=== PATIENT | male | born 1945 | race Hispanic/Latino ===

== ENCOUNTER 2016-06-13 06:10 | Inpatient (IN) | payer MEDICARE ==
[2016-06-07 13:37] LABS: Basophils % (Auto) 0.6 % (0.0-1.8); Eosinophils % (Auto) 2.6 % (0.0-4.3); Hematocrit 49.5 % (35.5-45.6); Hemoglobin 16.2 gm/dl (11.8-15.2); Mean Corpuscular HGB Conc 33 % (32-34); Mean Corpuscular Hemoglobin 30 pg (28-32); Mean Corpuscular Volume 93 fl (84-94); Platelet Count 165 K/mm3 (140-440); Red Blood Count 5.34 M/mm3 (3.65-5.03); Red Cell Distribution Width 14.6 % (13.2-15.2); White Blood Count 8.1 K/mm3 (4.5-11.0)
[2016-06-07 13:48] LABS: INR 1.27 (0.87-1.13); Partial Thromboplastin Time 33.6 Sec. (24.2-36.6)
--- NOTE | 2016-06-07 13:59 | Anesthesia Consultation ---
Anesthesia Consult and Med Hx Date of service: 06/07/16 - Airway Anesthetic Teeth Evaluation: Dentures, Partials ROM Head & Neck: Inadequate Mental/Hyoid Distance: Inadequate Mallampati Class: Class II Intubation Access Assessment: Probably Good - Pulmonary Exam CTA: Yes (blbs clear/distant) - Cardiac Exam Cardiac Exam: RRR - Pre-Operative Health Status ASA Pre-Surgery Classification: ASA3 Proposed Anesthetic Plan: General - Pulmonary Hx Smoking: Yes (STOPPED 1989-02 PPD X 30YRS) COPD: Yes (?) Hx Sleep Apnea: No (MOHAN PRE SCREEN HIGH RISK) - Cardiovascular System Hx Hypertension: Yes (1989) Hx Coronary Artery Disease: Yes Hx Heart Attack/AMI: Yes (1989- [place] WITH MEDS) Hx Cardia Arrhythmia: Yes (intermittant afib on anticoagulation) Hx Pacemaker: Yes Hx Internal Defibrillator: Yes (AICD last EF 40% /did get cardiac clearance) Hx Valvular Heart Disease: Yes (MITRAL VALVE INSUFFICIENCY) Hx Peripheral Vascular Disease: Yes (L CEA) - Endocrine Hx Non-Insulin Dependent Diabetes: Yes - Additional Comments Anesthesia Medical History Comments: gout /prostate cancer/RUBY/
[2016-06-07 14:02] LABS: Albumin 4.2 g/dL (3.9-5); Albumin/Globulin Ratio 1.2 %; BUN/Creatinine Ratio 33.07; Bilirubin,Total 0.6 mg/dL (0.1-1.2); Chloride 97.7 mmol/L (98-107); Potassium 4.1 mmol/L (3.6-5.0); Total Protein 7.6 g/dL (6.3-8.2)
--- NOTE | 2016-06-09 13:19 | Admit Criteria Form ---
Admission Criteria Documentation: AMBULATORY SURGERY EXCEPTION CRITERIA Ambulatory Surgery Exception Criteria ( Place 'X' for any and all applicable criteria): Surgery or procedure performed on ambulatory basis may require inpatient stay for[A] ANY ONE of the following(1)(2)(3)(4)(5)(6)(7)(8)(9): [X] I. A preoperative situation, condition, or finding that warrants inpatient stay as indicated by ANY ONE of the following: [] a) Inpatient care needed because of severity of a disease or condition rather than the surgery (eg, severe cardiac or respiratory disease, severe infection) (15) (16 ) (17) (18) [] b) Emergent procedure (eg, angioplasty for acute ischemia)(19) [] c) Complex surgical approach or situation as indicated by ANY ONE of the following(3): [] i) Open approach needed instead of usual endoscopic, transcatheter, or other less invasive procedure [] ii) Difficult approach because of previous operation [] iii) Airway monitoring required after open neck procedures(20)(21) [] iv) Large mass requiring unusually extensive dissection [] v) Additional complicating feature requiring inpatient care (eg, drain management)(22(23): [X] d) Major surgery in a pt with high anesthetic risk as indicated by ANY ONE of the following (2)(3)(5)(7)(8): [X] i) ASA risk class III or higher (severe systemic disease impairing function) [D] [] ii) Advanced age (eg, older than 85 years)(14)(24) [] iii) Symptomatic heart failure(25) [] iv) Symptomatic asthma or COPD(8)(21) [] v) Morbid obesity with hemodynamic or respiratory problems(20)( 21)(26)(27) [] vi) Obstructive sleep apnea(20)(21) [] vii) Former premature infants who are younger than 60 weeks [] viii) High risk for severe postoperative abnormalities (eg, severe postoperative hypocalcemia after parathyroidectomy for severe hyperparathyroidism)(27)( 28) [] ix) Unstable angina(25) [] e) Drug-related risk requiring inpatient stay as indicated by ANY ONE of the following(5)(10)(14)(32)(33) [] i) Procedure requires discontinuing drugs or other therapy (eg , antiarrhythmic medication, antiseizure medication), which necessitates inpatient observation or treatment.(18)(31) [] ii) Major surgery and high risk drug use as indicated by ANY ONE of the following: [] 1) Active abuse of cocaine or similar drug [] 2) Monoamine oxidase inhibitor use [] 3) Other drug identified as posing risk [] f) Inadequate outpatient care situation as indicated by ANY ONE of the following(5)(10)(14)(32)(33) [] i) Patient lives remote from medical facility and procedure has urgent complication potential, and temporary nearby residence cannot be arranged [] ii) Patient will have postprocedure incapacitation and inadequate assistance at home, or alternative level of care cannot be arranged. [] iii) Patient will have long general anesthesia or procedure side effect resolution time, and competent person to stay with patient on first postoperative night at home or alternative level of care cannot be arranged. []iv) Other inadequate outpatient situation that cannot be handled by other means [] II. A perioperative event, condition, or finding that warrants inpatient stay as indicated by ANY ONE of the following (1)(2)(3): [] a) Inadequate physiologic recovery: cardiovascular, respiratory, or hemodynamic status not normal or near preoperative baseline(18) [] b) Hemodynamic instability [] c) Patient not alert with near normal or baseline mental status [] d) Temperature not normal or as expected and not appropriate for outpatient treatment of condition [] e) Ambulatory or appropriate activity level status not yet achieved post procedure [E](34)(35)(36) [] f) Operative site not appropriate (eg, unexpected or excessive drainage or bleeding) [] g) Postoperative effects not resolved or adequately managed (eg, significant pain or vomiting not appropriate for outpatient or next level of care)(10)(12) [] h) Complicating features requiring inpatient care as indicated by ANY ONE of the following(37): [] i) Severe complications of procedure (eg, bowel injury, airway compromise, vascular injury,severe hemorrhage) [] ii) Extensive (eg, dissection far beyond usual scope of procedure ) or prolonged (eg, 120 minutes beyond usual) surgery needed requiring inpatient postoperative care [] iii) Conversion to an open or complex procedure that requires inpatient care (eg, open vs laparoscopic cholecystectomy, abdominal vs vaginal hysterectomy)(38) [] iv) Comorbid condition or test result identified during or post procedure that requires inpatient care (7) [] v) Malignant hyperthermia(30) [] vi) Other complicating feature requiring inpatient care(22)(23) Inpatient stay may be needed until ALL of the following are present (1)(2)(3)(4) (5)(6)(10)(14)(33)(40): []a) Physiologic recovery: cardiovascular, respiratory, and hemodynamic status normal or near preoperative baseline []b) Hemodynamic stability []c) Patient alert, with near normal or baseline mental status []d) Temperature appropriate: patient afebrile or temperature appropriate for outpt treatment of condition []e) Activity level appropriate: ambulatory or appropriate activity level post procedure []f) Operative site appropriate as indicated by ALL of the following: []i) Site dry or with expected drainage []ii) Any blood noted is as expected for procedure. []g) Postoperative effects resolved or managed as indicated by ALL of the following: []i) Pain management appropriate for outpatient (or next level of) care(10) []ii) Minimal nausea and vomiting: if present, successfully treated with oral medication(12) []iii) Headache, dizziness, or drowsiness (if present) are mild. []h) Voiding status acceptable as indicated by ANY ONE of the following: []i) Voiding spontaneously []ii) No voiding but instructions given for follow-up in 6 to 8 hours []iii) Urinary catheter in place, and instructions given for follow-up []i) Complicating features requiring inpatient care manageable at a lower level of care(37) []j) Comorbid conditions manageable at a lower level of care(37) The original [employer] content created by [employer] has been revised. The portions of the content which have been revised are identified through the use of italic text or in bold, and [employer] has neither reviewed nor approved the modified material. All other unmodified content is copyright [employer]. Please see references footnoted in the original [employer] edition 2016
[~2016-06-13 06:10] MED LIST: ANCEF/STERILE WATER 2 GM/20 ML IV NR; DILAUDID IV PRN; NACL 0.9% 1000 ML 1,000 ML IV SCH; PEPCID IV NR; PEPCID PO NR; SUBLIMAZE IV PRN; VERSED IV NR
[2016-06-13] MEDS ORDERED: NACL BACTERIOSTATIC INFILTRATI ONE (06:32)
[2016-06-13] MEDS: NACL 0.9% 1000 ML 1,000 ML IV SCH ×2 (07:11→18:12)
[2016-06-13 07:17] LABS: INR 1.05 (0.87-1.13); Partial Thromboplastin Time 31.7 Sec. (24.2-36.6)
[2016-06-13] MEDS ORDERED: XYLOCAINE MPF 2% ONE (07:23)
[2016-06-13] MEDS ORDERED: DILAUDID ONE (07:24)
[2016-06-13] MEDS ORDERED: DIPRIVAN 10 MG/ML IV ONE (07:24)
[2016-06-13] MEDS ORDERED: ZEMURON IV ONE (07:24)
[2016-06-13] MEDS ORDERED: CALCIUM CHLORIDE IV ONE ×2 (07:27→10:22)
[2016-06-13] MEDS ORDERED: ACD-A 500 ML IV ONE (07:27)
--- NOTE | 2016-06-13 07:27 | Anesthesia Day of Surgery ---
Anesthesia Day of Surgery - Day of Surgery Patient Examined: Yes Patient H&P Reviewed: Yes Patient is NPO: Yes Beta Blockers: Yes Cardiac Clearance: Yes
[2016-06-13] MEDS ORDERED: THROMBIN (BOVINE) TP ONE ×2 (07:28→10:22)
[2016-06-13] MEDS ORDERED: SUBLIMAZE ONE (07:32)
[2016-06-13] MEDS ORDERED: MARCAINE-EPI 0.5%-1:200,000 INFILTRATI ONE (07:32)
[2016-06-13] MEDS ORDERED: MARCAINE-EPI/PF 0.5%-1:200,000 INFILTRATI ONE (07:32)
[2016-06-13] MEDS ORDERED: DECADRON ONE (07:33)
[2016-06-13] MEDS ORDERED: CLONIDINE 1,000 MCG/10 ML VIAL EP ONE (07:33)
[2016-06-13] MEDS ORDERED: XYLOCAINE 1% 20 mL ONE (07:36)
[2016-06-13] MEDS ORDERED: ePHEDrine SULFATE ONE ×2 (08:34→10:24)
[2016-06-13] MEDS ORDERED: ZOFRAN IV PRN ×2 (08:39→11:00)
[2016-06-13] MEDS ORDERED: DILAUDID IV PRN (08:39)
[2016-06-13] MEDS ORDERED: NACL 0.9% 1000 ML 1,000 ML ONE ×2 (09:46→12:05)
[2016-06-13] MEDS ORDERED: NEOSTIGMINE ONE (10:14)
[2016-06-13] MEDS ORDERED: ZOFRAN ONE (10:14)
[2016-06-13] MEDS ORDERED: ROBINUL ONE (10:14)
[2016-06-13] MEDS ORDERED: NACL 0.9% IR ONE (10:21)
[2016-06-13] MEDS ORDERED: WATER FOR IRRIG STERILE IR ONE (10:21)
[2016-06-13] MEDS ORDERED: ACD-A IV ONE (10:21)
[2016-06-13] MEDS ORDERED: D50W (25GM) IV PRN (10:50)
[2016-06-13] MEDS ORDERED: MORPHINE IV PRN (10:50)
[2016-06-13] MEDS ORDERED: NARCAN 0.4 MG/1 ML IV PRN (10:50)
[2016-06-13] MEDS ORDERED: NORCO 5/325 PO PRN (10:50)
[2016-06-13] MEDS ORDERED: TYLENOL PO PRN (10:50)
--- NOTE | 2016-06-13 10:50 | Short Stay Summary ---
Short Stay Documentation Date of service: 06/13/16 - History H&P: obtained from office - Allergies and Medications Current Medications: Allergies dabigatran etexilate mesylate [From Pradaxa] Allergy (Verified 06/06/16 10:48) Shortness of Breath atorvastatin calcium [From Lipitor] Adverse Reaction (Verified 06/06/16 10:49) MUSCLE WEAKNESS Home Medications Medication Instructions Recorded Confirmed Last Taken Type Allopurinol [Zyloprim] 300 mg PO QDAY 06/06/16 06/06/16 Unknown History Apixaban [Eliquis] 5 mg PO BID 06/06/16 06/06/16 Unknown History Bumetanide [Bumex] 1 mg PO DAILY 06/06/16 06/06/16 Unknown History Carvedilol [Coreg] 25 mg PO BID 06/06/16 06/06/16 Unknown History Cholecalciferol (Vitamin D3) 5,000 unit PO DAILY 06/06/16 06/06/16 Unknown History [Vitamin D3] Fenofibrate [Tricor] 145 mg PO QDAY 06/06/16 06/06/16 Unknown History Glimepiride [Amaryl] 4 mg PO BID 06/06/16 06/06/16 Unknown History Liraglutide [Victoza 2-Ibn] 0.6 mg SUB-Q DAILY 06/06/16 06/06/16 Unknown History Nitroglycerin [Nitrostat] 0.4 mg SL Q5M PRN 06/06/16 06/06/16 Unknown History Olmesartan/Amlodipin/Hcthiazid 1 tab PO DAILY 06/06/16 06/06/16 Unknown History [Tribenzor 40-5-25 mg] [place]-3 Acid Ethyl Esters [Lovaza] 2 gm PO BID 06/06/16 06/06/16 Unknown History Rosuvastatin Calcium [Crestor] 40 mg PO QHS 06/06/16 06/06/16 Unknown History Sitagliptin Phosphate [Januvia] 100 mg PO DAILY 06/06/16 06/06/16 Unknown History Tamsulosin [Flomax] 0.4 mg PO QDAY 06/06/16 06/06/16 Unknown History metFORMIN [Glucophage] 500 mg PO BID 06/06/16 06/06/16 Unknown History Active Medications Cefazolin Sodium (Ancef/Sterile Water 2 Gm/20 Ml) 2 gm IV PREOP NR Stop: 06/13/16 23:59 Famotidine (Pepcid) 20 mg PO PREOP NR Stop: 06/13/16 23:44 Last Admin: 06/13/16 07:09 Dose: 20 mg Hydromorphone HCl (Dilaudid) 0.5 mg IV Q10MIN PRN PRN Reason: Pain , Severe (7-10) Stop: 06/13/16 16:00 Sodium Chloride (Nacl 0.9% 1000 Ml) 1,000 mls @ 100 mls/hr IV DIRECT SIGRID Last Admin: 06/13/16 07:11 Dose: 100 mls/hr Midazolam HCl (Versed) 2 mg IV PREOP NR Stop: 06/13/16 23:59 Last Admin: 06/13/16 07:50 Dose: 2 mg Ondansetron HCl (Zofran) 4 mg IV ONCE PRN PRN Reason: Nausea And Vomiting Stop: 06/13/16 16:00 - Brief post op/procedure progress note Date of procedure: 06/13/16 Pre-op diagnosis: prostate cancer Procedure: robotic prostatectomy Anesthesia: GETA Surgeon: ROBBI BASS Software Program Manager: MICHELLE ALBRIGHT Estimated blood loss: other (450cc) Pathology: list (prostate) Specimen disposition: to lab Condition: stable - Hospital course Hospital course: rudy zamorano ambien & post op info on chart mild increase in cr to 2.1 Hb 11 Glucose 200s---trending down will send home restart blood thinner the day pavon removed recheck cbc & chem 7 on post op - Disposition Condition at discharge: Stable Short Stay Discharge Plan Follow up with: MICHELLE ERNST MD [Primary Care Provider] - 7 Days
[2016-06-13] MEDS ORDERED: NACL 0.9% 1000 ML 1,000 ML IV SCH (11:00)
[2016-06-13] MEDS ORDERED: NITROSTAT SL PRN (11:06)
[2016-06-13 12:23] LABS: Hemoglobin 13.9 gm/dl (11.8-15.2); Mean Corpuscular HGB Conc 33 % (32-34); Mean Corpuscular Hemoglobin 30 pg (28-32); Mean Corpuscular Volume 92 fl (84-94); Platelet Count 136 K/mm3 (140-440); Red Blood Count 4.57 M/mm3 (3.65-5.03); Red Cell Distribution Width 14.3 % (13.2-15.2); White Blood Count 10.9 K/mm3 (4.5-11.0)
--- NOTE | 2016-06-13 12:25 | Post Anesthesia Evaluation ---
- Post Anesthesia Evaluation Patient Participated: Yes Airway Patent: Yes Stable Respiratory Function: Yes Nausea/Vomiting: No Temp > 96.8F: Yes Pain Manageable: Yes Adequeate Hydration: Yes Anesthesia Complications: No Block Receding Appropriately: Not Applicable Patient on Ventilator: No
[2016-06-13 12:38] LABS: BUN/Creatinine Ratio 22.66; Calcium 8.3 mg/dL (8.4-10.2); Chloride 101.3 mmol/L (98-107); Potassium 5.2 mmol/L (3.6-5.0)
[2016-06-13 12:57] LABS: Basophils % (Manual) 0 % (0.0-1.8); Blastocytes % (Manual) 0 %; Eosinophils % (Manual) 0 % (0.0-4.3)
[2016-06-13 12:58] LABS: Diff Status Complete; Platelet Estimate Cons; RBC Morphology Normal
[2016-06-13] MEDS: AMARYL PO SCH ×2 (14:29→17:52)
--- NOTE | 2016-06-13 14:41 | Operative Report ---
PREOPERATIVE DIAGNOSIS: Prostate cancer. POSTOPERATIVE DIAGNOSIS: Prostate cancer. SECONDARY DIAGNOSES: Diabetes, atrial fibrillation, hyperlipidemia, increased body mass index. PROCEDURE: Robotic-assisted laparoscopic prostatectomy. SURGEON: Laron Jennings MD ENTERPRISE PROJECT MANAGER: Oj Dao. ANESTHESIA: General. ANESTHESIOLOGIST: Siomara Smith MD ESTIMATED BLOOD LOSS: 450 mL. FLUIDS: 250 mL of Cell Saver. DRAINS: Junito-Powell drain x 1. COMPLICATIONS: No complications. INDICATIONS: This 71-year-old gentleman initially seen by Dr. Holly in the office for elevated PSA of 6. He underwent transrectal ultrasound and biopsies of prostate in March, was found to have a Monica 4+3 adenocarcinoma of the prostate in the left side 3 of 12 cores. Options were discussed. The patient was actually seen by Radiation Therapy due to his persistent voiding symptoms, I did not feel that he would benefit from external beam radiation and only recommended seeds, which the patient was uncomfortable with that treatment plan. We discussed robotic prostatectomy. Options were discussed, video given, he agreed to proceed procedure. He received clearance from Dr. Givens's group. DESCRIPTION OF PROCEDURE: The patient was taken to the operative suite, placed in a supine position. After adequate general anesthesia, he was then placed in a modified dorsal lithotomy position. Andujar catheter was placed on the operative field. Towel clips were placed. Supraumbilical incision was made with the Bovie. Anterior traction was performed. Veress needle was inserted. Drop test was negative. Opening pressure was 4 cm of water. Oj Dao, surgical scheduler was present throughout the procedure, and aided with the bedside dissection. Insufflation to 15 mL of water was performed. A 0-degree lens was used under direct vision and a supraumbilical port was placed. No intra-abdominal injury. No signs of metastasis could be appreciated. The patient was then placed in exaggerated Trendelenburg position. A 15 cm cephalad to pubic symphysis was marked in 10 cm lateral, the 8 mm ports were then placed in that area as well as on the right side, a 10 mm helper port and the 5 mm helper port. Robotic arms were placed, the robotic cart was docked between the legs. The patient was noted to have some adhesions of the sigmoid colon in the right side. Sharp dissection was used to take them down. The #3 arm was used to apply anterior traction to the posterior aspect of the prostate and bladder. Second arch was scored. Seminal vesicles and vas deferens could be appreciated. They were dissected out and the dissection was taken to the apex of the prostate. Vas deferens was transected. Seminal vesicles were dissected out, and then these copious irrigation was performed. Adequate hemostasis achieved. The attention was then taken to the anterior abdominal wall lateral to the lateral umbilical ligament was scored bilaterally. Dissection was taken down to expose the pubic rami bilaterally. The dorsal vein complex was controlled with the 45 mm vascular stapler. The endopelvic fascia was opened bilaterally. Attention was taken to the bladder neck which was transected anteriorly, exposing the Andujar catheter. It was deflated. Anterior traction was used to allow the posterior dissection of the bladder neck. Seminal vesicles and vas deferens could be appreciated. There were pulled anteriorly exposing the lateral pedicles were controlled with a 45 mm stapler. The apex of the prostate was dissected out. The urethra was transected with the Bovie and the prostate was placed in the EndoCatch bag and retracted laterally. Copious irrigation was performed. Adequate hemostasis was achieved. At bladder neck, a 12 o'clock helper stitch using 2-0 Vicryl was placed. Bladder neck reconstruction at the 5 o'clock and 7 o'clock positions were performed without difficulty to accommodate an 18 Romanian Andujar catheter. Double armed V-Loc stitch was placed at the 6 o'clock position of the bladder neck, corresponding aspect of the urethra in a running stitch was placed bilaterally. A new 18-Romanian Andujar catheter was placed. A 15 mL of sterile water in the balloon. The anastomotic stitch was cinched down. Irrigation, no clots, no leak. Junito-Powell drain was placed in the abdomen, brought out through the left side port. No intra-abdominal injuries could be appreciated. Robotic ports were removed, cart undocked. Next, the supraumbilical incision was extended to allow removal of the prostate en bloc. Supraumbilical incision was then closed with #1 Vicryl in a [id number] fashion. 2-0 silk was used to secure the drain of the skin. 3-0 Monocryl was used for the skin as well as it was injected with Marcaine. Side port on the Andujar catheter was tied over, #1 silk was used to tie, so it could not be removed. The patient tolerated the procedure well, extubated and taken to recovery room. He will be observed overnight, go home on Cipro and Joy. [facility]# [id number] RADHA/KORIN GARRIDO
[2016-06-13] MEDS: ANCEF/NS 1 GM/50 ML 1 GM/50 ML BAG IV SCH (17:52)
[2016-06-13] MEDS ORDERED: NON-FORMULARY (Rosuvastatin Calcium [Crestor] 40 MG) PO SCH (22:00)
[2016-06-13] MEDS ORDERED: AMBIEN PO PRN (22:00)
[2016-06-13] MEDS ORDERED: GLUCOPHAGE PO SCH (22:00)
[2016-06-14] MEDS: COREG PO SCH ×2 (00:31→12:15)
[2016-06-14] MEDS: ANCEF/NS 1 GM/50 ML 1 GM/50 ML BAG IV SCH (01:43)
[2016-06-14 05:02] LABS: Basophils % (Auto) 0.2 % (0.0-1.8); Hematocrit 34.8 % (35.5-45.6); Hemoglobin 11.7 gm/dl (11.8-15.2); Mean Corpuscular HGB Conc 34 % (32-34); Mean Corpuscular Hemoglobin 31 pg (28-32); Mean Corpuscular Volume 92 fl (84-94); Platelet Count 141 K/mm3 (140-440); Red Cell Distribution Width 14.8 % (13.2-15.2); White Blood Count 11.6 K/mm3 (4.5-11.0)
[2016-06-14 05:09] LABS: BUN/Creatinine Ratio 22.85; Calcium 7.9 mg/dL (8.4-10.2); Chloride 101.1 mmol/L (98-107); Potassium 5.3 mmol/L (3.6-5.0)
[2016-06-14] MEDS ORDERED: GLUCOPHAGE PO SCH (08:00)
--- NOTE | 2016-06-14 08:30 | Consultation ---
History of Present Illness - Reason for Consult Consult date: 06/13/16 Medical management Requesting physician: ROBBI BASS Past History Past Medical History: CAD, hypertension, other (Gout) Medications and Allergies Allergies Allergy/AdvReac Type Severity Reaction Status Date / Time dabigatran etexilate mesylate Allergy Shortness Verified 06/06/16 10:48 [From Pradaxa] of Breath atorvastatin calcium AdvReac MUSCLE Verified 06/06/16 10:49 [From Lipitor] WEAKNESS Home Medications Medication Instructions Recorded Confirmed Last Taken Type Allopurinol [Zyloprim] 300 mg PO QDAY 06/06/16 06/13/16 06/12/16 History Apixaban [Eliquis] 5 mg PO BID 06/06/16 06/13/16 06/09/16 History Bumetanide [Bumex] 1 mg PO 5XW 06/06/16 06/13/16 06/10/16 History Carvedilol [Coreg] 25 mg PO BID 06/06/16 06/13/16 06/13/16 05:00 History Cholecalciferol (Vitamin D3) 5,000 unit PO DAILY 06/06/16 06/13/16 06/12/16 History [Vitamin D3] Fenofibrate [Tricor] 145 mg PO QDAY 06/06/16 06/13/16 06/12/16 History Glimepiride [Amaryl] 4 mg PO BID 06/06/16 06/13/16 06/12/16 History Liraglutide [Victoza 2-Bin] 0.6 mg SUB-Q DAILY 06/06/16 06/13/16 06/12/16 History Nitroglycerin [Nitrostat] 0.4 mg SL Q5M PRN 06/06/16 06/06/16 Unknown History Olmesartan/Amlodipin/Hcthiazid 1 tab PO DAILY 06/06/16 06/13/16 06/13/16 05:00 History [Tribenzor 40-5-25 mg] [place]-3 Acid Ethyl Esters [Lovaza] 2 gm PO BID 06/06/16 06/13/16 06/12/16 History Rosuvastatin Calcium [Crestor] 40 mg PO QHS 06/06/16 06/13/16 06/12/16 History Sitagliptin Phosphate [Januvia] 100 mg PO DAILY 06/06/16 06/13/16 06/12/16 History Tamsulosin [Flomax] 0.4 mg PO QDAY 06/06/16 06/13/16 06/12/16 History metFORMIN [Glucophage] 500 mg PO BID 06/06/16 06/13/16 06/12/16 History Active Meds: Active Medications Acetaminophen (Tylenol) 650 mg PO Q4H PRN PRN Reason: Pain, Mild (1-3)/Fever > 100.5 Acetaminophen/Hydrocodone Bitart ([place] 5/325) 2 each PO Q4H PRN PRN Reason: Pain, Moderate (4-6) Last Admin: 06/13/16 18:10 Dose: 2 each Allopurinol (Zyloprim) 300 mg PO QDAY [facility] Amlodipine Besylate (Norvasc) 5 mg PO QDAY [facility] Bumetanide (Bumex) 1 mg PO DAILY [facility] Carvedilol (Coreg) 25 mg PO BID [facility] Last Admin: 06/14/16 00:31 Dose: Not Given Dextrose (D50w (25gm)) 50 ml IV PRN PRN PRN Reason: Hypoglycemia Fenofibrate (Tricor) 145 mg PO QDAY [facility] Glimepiride (Amaryl) 4 mg PO BIDDIAB [facility] Last Admin: 06/13/16 17:52 Dose: 4 mg Hydrochlorothiazide (Hctz) 25 mg PO QDAY [facility] Sodium Chloride (Nacl 0.9% 1000 Ml) 1,000 mls @ 100 mls/hr IV DIRECT [facility] Last Admin: 06/14/16 03:58 Dose: 100 mls/hr Insulin Human Regular (Novolin R) 0 units SUB-Q ACHS SIGRID PRN Reason: Protocol Last Admin: 06/14/16 00:34 Dose: 3 units Linagliptin (Tradjenta) 5 mg PO QDAY [facility] Losartan Potassium (Cozaar) 50 mg PO QDAY [facility] Metformin HCl (Glucophage) 500 mg PO BIDDIAB [facility] Miscellaneous Medication (Rosuvastatin Calcium [Crestor]) 40 mg PO QHS [facility] Morphine Sulfate (Morphine) 4 mg IV Q4H PRN PRN Reason: Pain , Severe (7-10) Naloxone HCl (Narcan 0.4 Mg/1 Ml) 0.1 mg IV Q2MIN PRN PRN Reason: Res Rate </= 8 or 02 SAT < 92% Nitroglycerin (Nitrostat) 0.4 mg SL Q5M PRN PRN Reason: Chest Pain Ondansetron HCl (Zofran) 4 mg IV Q8H PRN PRN Reason: Nausea And Vomiting Zolpidem Tartrate (Ambien) 5 mg PO QHS PRN PRN Reason: Sleep Last Admin: 06/14/16 00:35 Dose: 5 mg Review of Systems All systems: negative Exam - Constitutional Vitals: Temp Pulse Resp BP Pulse Ox 98.3 F 82 18 114/65 95 06/14/16 07:35 06/14/16 07:35 06/14/16 07:35 06/14/16 07:35 06/14/16 07:35 General appearance: Present: no acute distress, well-nourished - EENT Eyes: Present: PERRL ENT: hearing intact, clear oral mucosa - Neck Neck: Present: supple, normal ROM - Respiratory Respiratory effort: normal Respiratory: bilateral: CTA - Cardiovascular Heart Sounds: Present: S1 & S2. Absent: rub, click - Extremities Extremities: pulses symmetrical, No edema Peripheral Pulses: within normal limits - Abdominal General gastrointestinal: Present: soft, non-tender, non-distended, normal bowel sounds Male genitourinary: Present: normal - Integumentary Integumentary: Present: clear, warm, dry - Musculoskeletal Musculoskeletal: gait normal, strength equal bilaterally - Psychiatric Psychiatric: appropriate mood/affect, intact judgment & insight - Neurologic Neurologic: CNII-XII intact, moves all extremities Results - Labs CBC & Chem 7: 06/14/16 04:14 06/14/16 04:14 Labs: Abnormal lab results 06/13/16 06/13/16 06/13/16 Range/Units 11:23 12:13 12:13 WBC (4.5-11.0) K/mm3 Hgb (11.8-15.2) gm/dl Hct (35.5-45.6) % Plt Count 136 L (140-440) K/mm3 Lymph % (Auto) (13.4-35.0) % Lymph # (1.2-5.4) K/mm3 Seg Neutrophils % (40.0-70.0) % Seg Neuts % (Manual) 89.0 H (40.0-70.0) % Lymphocytes % (Manual) 8.0 L (13.4-35.0) % Seg Neutrophils # (1.8-7.7) K/mm3 Seg Neutrophils # Man 9.7 H (1.8-7.7) K/mm3 Lymphocytes # (Manual) 0.9 L (1.2-5.4) K/mm3 Sodium 135 L (137-145) mmol/L Potassium 5.2 H (3.6-5.0) mmol/L Carbon Dioxide 21 L (22-30) mmol/L BUN 34 H (9-20) mg/dL Creatinine (0.8-1.5) mg/dL Glucose 224 H (75-100) mg/dL POC Glucose 202 H (70-105) Calcium 8.3 L (8.4-10.2) mg/dL 06/13/16 06/13/16 06/13/16 Range/Units 12:13 13:05 16:30 WBC (4.5-11.0) K/mm3 Hgb (11.8-15.2) gm/dl Hct (35.5-45.6) % Plt Count (140-440) K/mm3 Lymph % (Auto) (13.4-35.0) % Lymph # (1.2-5.4) K/mm3 Seg Neutrophils % (40.0-70.0) % Seg Neuts % (Manual) (40.0-70.0) % Lymphocytes % (Manual) (13.4-35.0) % Seg Neutrophils # (1.8-7.7) K/mm3 Seg Neutrophils # Man (1.8-7.7) K/mm3 Lymphocytes # (Manual) (1.2-5.4) K/mm3 Sodium (137-145) mmol/L Potassium (3.6-5.0) mmol/L Carbon Dioxide (22-30) mmol/L BUN (9-20) mg/dL Creatinine (0.8-1.5) mg/dL Glucose (75-100) mg/dL POC Glucose 226 H 221 H 493 H (70-105) Calcium (8.4-10.2) mg/dL 06/13/16 06/14/16 06/14/16 Range/Units 21:17 04:14 04:14 WBC 11.6 H (4.5-11.0) K/mm3 Hgb 11.7 L (11.8-15.2) gm/dl Hct 34.8 L D (35.5-45.6) % Plt Count (140-440) K/mm3 Lymph % (Auto) 5.1 L (13.4-35.0) % Lymph # 0.6 L (1.2-5.4) K/mm3 Seg Neutrophils % 87.8 H (40.0-70.0) % Seg Neuts % (Manual) (40.0-70.0) % Lymphocytes % (Manual) (13.4-35.0) % Seg Neutrophils # 10.2 H (1.8-7.7) K/mm3 Seg Neutrophils # Man (1.8-7.7) K/mm3 Lymphocytes # (Manual) (1.2-5.4) K/mm3 Sodium 135 L (137-145) mmol/L Potassium 5.3 H (3.6-5.0) mmol/L Carbon Dioxide 20 L (22-30) mmol/L BUN 48 H (9-20) mg/dL Creatinine 2.1 H (0.8-1.5) mg/dL Glucose 158 H (75-100) mg/dL POC Glucose 222 H (70-105) Calcium 7.9 L (8.4-10.2) mg/dL Assessment and Plan - Patient Problems (1) HTN (hypertension) Current Visit: Yes Status: Chronic Qualifiers: Hypertension type: essential hypertension Qualified Code(s): I10 - Essential (primary) hypertension Plan to address problem: Cont Coreg (2) Gout Current Visit: Yes Status: Chronic Qualifiers: Gout site: unspecified site Gout etiology: G Encounter type: E Laterality: L Chronicity: C Presence of tophus: P Plan to address problem: Cont Allopurinol (3) CAD (coronary artery disease) Current Visit: Yes Status: Chronic Qualifiers: Coronary Disease-Associated Artery/Lesion type: [place] artery [place] vs. transplanted heart: N Associated angina: without angina Plan to address problem: Stef Chamorro
[2016-06-14] MEDS: AMARYL PO SCH (09:18)
[2016-06-14] MEDS ORDERED: TRICOR PO SCH (10:00)
[2016-06-14] MEDS ORDERED: TRADJENTA PO SCH (10:00)
[2016-06-14] MEDS ORDERED: HCTHIAZID PO SCH (10:00)
[2016-06-14] MEDS ORDERED: HCTZ PO SCH (10:00)
[2016-06-14] MEDS ORDERED: BUMEX PO SCH (10:00)
[2016-06-14] MEDS ORDERED: COZAAR PO SCH (10:00)
[2016-06-14] MEDS ORDERED: NORVASC PO SCH (10:00)
[2016-06-14] MEDS ORDERED: NON-FORMULARY (Sitagliptin Phosphate [Januvia] 100 MG) PO SCH (10:00)
[2016-06-14] MEDS ORDERED: OLMESARTAN PO SCH (10:00)
[2016-06-14] MEDS ORDERED: AMLODIPIN PO SCH (10:00)
[2016-06-14] MEDS ORDERED: ZYLOPRIM PO SCH (10:00)
--- NOTE | 2016-06-14 11:00 | Progress Note ---
Subjective Date of service: 06/14/16 Interval history: 1st POD after robotic prostatectomy Patient is in the bed, comfortable. Pain is well controlled with pain meds. No nausea or vomiting. No anesthesia complications Objective - Constitutional Vitals: Vital Signs - 12hr 06/14/16 06/14/16 06/14/16 00:31 01:11 04:00 Temperature 98.1 F 97.8 F Pulse Rate 90 Pulse Rate [ 94 H 83 Left] Respiratory 20 20 Rate Blood Pressure 108/60 Blood Pressure 112/54 103/56 [Left Arm] O2 Sat by Pulse 94 95 Oximetry 06/14/16 07:35 Temperature 98.3 F Pulse Rate Pulse Rate [ 82 Left] Respiratory 18 Rate Blood Pressure Blood Pressure 114/65 [Left Arm] O2 Sat by Pulse 95 Oximetry - Labs CBC & Chem 7: 06/14/16 04:14 06/14/16 04:14 Labs: Abnormal lab results 06/13/16 06/13/16 06/13/16 Range/Units 11:23 12:13 12:13 WBC (4.5-11.0) K/mm3 Hgb (11.8-15.2) gm/dl Hct (35.5-45.6) % Plt Count 136 L (140-440) K/mm3 Lymph % (Auto) (13.4-35.0) % Lymph # (1.2-5.4) K/mm3 Seg Neutrophils % (40.0-70.0) % Seg Neuts % (Manual) 89.0 H (40.0-70.0) % Lymphocytes % (Manual) 8.0 L (13.4-35.0) % Seg Neutrophils # (1.8-7.7) K/mm3 Seg Neutrophils # Man 9.7 H (1.8-7.7) K/mm3 Lymphocytes # (Manual) 0.9 L (1.2-5.4) K/mm3 Sodium 135 L (137-145) mmol/L Potassium 5.2 H (3.6-5.0) mmol/L Carbon Dioxide 21 L (22-30) mmol/L BUN 34 H (9-20) mg/dL Creatinine (0.8-1.5) mg/dL Glucose 224 H (75-100) mg/dL POC Glucose 202 H (70-105) Calcium 8.3 L (8.4-10.2) mg/dL 06/13/16 06/13/16 06/13/16 Range/Units 12:13 13:05 16:30 WBC (4.5-11.0) K/mm3 Hgb (11.8-15.2) gm/dl Hct (35.5-45.6) % Plt Count (140-440) K/mm3 Lymph % (Auto) (13.4-35.0) % Lymph # (1.2-5.4) K/mm3 Seg Neutrophils % (40.0-70.0) % Seg Neuts % (Manual) (40.0-70.0) % Lymphocytes % (Manual) (13.4-35.0) % Seg Neutrophils # (1.8-7.7) K/mm3 Seg Neutrophils # Man (1.8-7.7) K/mm3 Lymphocytes # (Manual) (1.2-5.4) K/mm3 Sodium (137-145) mmol/L Potassium (3.6-5.0) mmol/L Carbon Dioxide (22-30) mmol/L BUN (9-20) mg/dL Creatinine (0.8-1.5) mg/dL Glucose (75-100) mg/dL POC Glucose 226 H 221 H 493 H (70-105) Calcium (8.4-10.2) mg/dL 06/13/16 06/14/16 06/14/16 Range/Units 21:17 04:14 04:14 WBC 11.6 H (4.5-11.0) K/mm3 Hgb 11.7 L (11.8-15.2) gm/dl Hct 34.8 L D (35.5-45.6) % Plt Count (140-440) K/mm3 Lymph % (Auto) 5.1 L (13.4-35.0) % Lymph # 0.6 L (1.2-5.4) K/mm3 Seg Neutrophils % 87.8 H (40.0-70.0) % Seg Neuts % (Manual) (40.0-70.0) % Lymphocytes % (Manual) (13.4-35.0) % Seg Neutrophils # 10.2 H (1.8-7.7) K/mm3 Seg Neutrophils # Man (1.8-7.7) K/mm3 Lymphocytes # (Manual) (1.2-5.4) K/mm3 Sodium 135 L (137-145) mmol/L Potassium 5.3 H (3.6-5.0) mmol/L Carbon Dioxide 20 L (22-30) mmol/L BUN 48 H (9-20) mg/dL Creatinine 2.1 H (0.8-1.5) mg/dL Glucose 158 H (75-100) mg/dL POC Glucose 222 H (70-105) Calcium 7.9 L (8.4-10.2) mg/dL
[2016-06-14 12:17] VITALS: BP 128/68
== END 2016-06-14 13:15 | disposition home health service (06) | DRG 708 ==
LOC: OR 06:10 → 2B-SURG 11:13
PROVIDERS: ADMIT Urology; ATTEND Urology
PROC: 0VT04ZZ Resection of Prostate, Percutaneous Endoscopic Approach (ICD-10-PCS; principal; 2016-06-13)
PROC: 8E0W4CZ Robotic Assisted Procedure of Trunk Region, Percutaneous Endoscopic Approach (ICD-10-PCS; 2016-06-13)
DX: C61 Malignant neoplasm of prostate (principal); I48.91 Unspecified atrial fibrillation; E78.5 Hyperlipidemia, unspecified; E11.9 Type 2 diabetes mellitus without complications; I25.10 Atherosclerotic heart disease of native coronary artery without angina pectoris; I10 Essential (primary) hypertension; M10.9 Gout, unspecified; J44.9 Chronic obstructive pulmonary disease, unspecified; I49.3 Ventricular premature depolarization; Z88.8 Allergy status to other drugs, medicaments and biological substances; Z71.3 Dietary counseling and surveillance; Z87.891 Personal history of nicotine dependence
CPT/HCPCS: 36415; 64450; 80048; 80053; 82962; 85007; 85025; 85610; 85730; 86850; 86900; 86901; 88309; 94760; A4217; J0690; J0735; J1100; J1170; J1815; J2250; J2405; J2704; J2710; J3010; J7030